=== PATIENT | male | born 1985 | race Caucasian/White ===

== ENCOUNTER 2017-01-18 12:40 | Emergency (ER) | payer OTHER ==
[~2017-01-18] VITALS: Ht 195.5 cm; Wt 104.3 kg
[2017-01-18] MEDS ORDERED: MEN'S BIOMULTI1 EACH PO (13:22)
[2017-01-18 13:34] LABS: BILIRUBIN NEGATIVE (NEGATIVE); BLOOD NEGATIVE (NEGATIVE); CLARITY SL CLOUDY (CLEAR); COLOR YELLOW (YELLOW); GLUCOSE NEGATIVE (NEGATIVE); KETONE NEGATIVE (NEGATIVE); LEUKO ESTERASE 2+ (NEGATIVE); NITRITE NEGATIVE (NEGATIVE); PH 6.5 (5.0-9.0); PROTEIN NEGATIVE (NEGATIVE); SPECIFIC GRAVITY 1.015 (1.005-1.030)
[2017-01-18 14:04] LABS: BACTERIA 4+; URINE REFLEX COMMENT YES (NO); WBC 0-2 wbc/hpf (0-5)
[2017-01-18] MEDS ORDERED: CIPRO500 MG PO (14:50)
== END 2017-01-18 15:02 | disposition home or self-care (01) ==
LOC: ED 12:40
PROVIDERS: Emergency Medicine
DX: N30.00 Acute cystitis without hematuria (principal); F17.200 Nicotine dependence, unspecified, uncomplicated

== ENCOUNTER → 2020-05-29 | Outpatient (CLI) | payer BC ==
[~2020-05-29] MED LIST: CIPRO500 MG PO; MEN'S BIOMULTI1 EACH PO
== END | disposition home or self-care (01) ==
LOC: COVID19 00:25
PROVIDERS: ATTEND Family Medicine
DX: U07.1 COVID-19 (principal)